=== PATIENT | female | born 1945 | race Caucasian/White ===

== ENCOUNTER → 2024-01-08 09:18 | Outpatient (REF) | payer MEDICARE, SELFPAY | LOC: HWWDC 09:18 | PROVIDERS: ATTENDING PHYSICIAN Family Medicine | DX: Z12.31 Encounter for screening mammogram for malignant neoplasm of breast (principal) | CPT/HCPCS: 77063; 77067 ==

== ENCOUNTER → 2024-03-31 09:30 | Outpatient (REF) | payer MEDICARE, SELFPAY ==
[2024-03-31 10:53] LABS: % Basophils 0.9 % (0-2); % Eosinophils 2.4 % (0-6); % Immature Granulocytes 0.5 % (0-0.5); % Lymphocytes 24.1 % (20.5-51.1); % Neutrophils 62.1 % (42.2-75.2); Absolute Basophils 0.1 10^3/uL (0-0.2); Absolute Eosinophils 0.1 10^3/uL (0-0.7); Absolute Lymphocytes 1.4 10^3/uL (1.2-3.4); Absolute Monocytes 0.6 10^3/uL (0.1-0.6); Absolute Neutrophils 3.6 10^3/uL (1.4-6.5); Hemoglobin 12.4 g/dL (12.0-16.0); Mean Corp Hgb Conc. 34.4 g/dL (33.0-37.0); Mean Corpuscular Hgb 31.3 pg (27.0-31.0); Mean Corpuscular Volume 90.9 fL (81.0-99.0); Nucleated Red Blood Cells % 0 %; Platelet Count 218 10^3/uL (130-400); Red Blood Cell Count 3.96 10^6/uL (4.20-5.40); Red Cell Dist. Width 12.5 % (11.5-14.5); White Blood Cell Count 5.8 10^3/uL (4.8-10.8)
[2024-03-31 11:49] LABS: ALT (SGPT) 39 U/L (0-35); AST (SGOT) 36 U/L (14-36); Albumin 4.5 g/dl (3.5-5.0); Alkaline Phosphatase 82 U/L (38-126); Blood Urea Nitrogen 26 mg/dl (7-17); Calcium 9.9 mg/dl (8.4-10.2); Carbon Dioxide 27 mmol/L (22-30); Chloride 103 mmol/L (98-107); Glucose 99 mg/dl (70-99); Potassium 4.1 mmol/L (3.5-5.1); Sodium 144 mmol/L (135-145); Total Bilirubin 1.3 mg/dl (0.2-1.3); Total Protein 6.9 g/dl (6.3-8.2); eGFR > 60.00
== END ==
LOC: RAD 09:30
PROVIDERS: ATTENDING PHYSICIAN Internal Medicine; PRIMARYCARE PHYSICIAN Family Medicine
DX: Z13.820 Encounter for screening for osteoporosis (principal); C50.912 Malignant neoplasm of unspecified site of left female breast; M81.0 Age-related osteoporosis without current pathological fracture
CPT/HCPCS: 36415; 77080; 80053; 85025

== ENCOUNTER 2024-05-04 08:50 | Outpatient (RCR) | payer MEDICARE, SELFPAY | END 2024-05-04 23:59 | disposition home or self-care (01) | LOC: RPT 08:50 | PROVIDERS: ATTENDING PHYSICIAN Family Medicine | DX: R15.9 Full incontinence of feces (principal); K62.89 Other specified diseases of anus and rectum; Z73.6 Limitation of activities due to disability; R47.01 Aphasia | CPT/HCPCS: 97110; 97112; 97162; 97530 ==

== ENCOUNTER 2024-06-03 10:47 | Outpatient (RCR) | payer MEDICARE, SELFPAY | END 2024-06-03 23:59 | disposition home or self-care (01) | LOC: RPT 10:47 | PROVIDERS: ATTENDING PHYSICIAN Family Medicine | DX: R15.9 Full incontinence of feces (principal); K62.89 Other specified diseases of anus and rectum; Z73.6 Limitation of activities due to disability; M62.81 Muscle weakness (generalized); R47.01 Aphasia | CPT/HCPCS: 97110; 97112 ==

== ENCOUNTER 2024-07-07 12:42 | Outpatient (RCR) | payer MEDICARE, SELFPAY | END 2024-07-07 23:59 | disposition home or self-care (01) | LOC: RPT 12:42 | PROVIDERS: ATTENDING PHYSICIAN Family Medicine | DX: R15.9 Full incontinence of feces (principal); K62.89 Other specified diseases of anus and rectum; Z73.6 Limitation of activities due to disability; M62.81 Muscle weakness (generalized); R47.01 Aphasia | CPT/HCPCS: 97110; 97112 ==

== ENCOUNTER 2024-07-29 10:51 | Outpatient (RCR) | payer MEDICARE, SELFPAY | END 2024-07-29 23:59 | disposition home or self-care (01) | LOC: RPT 10:51 | PROVIDERS: ATTENDING PHYSICIAN Family Medicine | DX: R15.9 Full incontinence of feces (principal); K62.89 Other specified diseases of anus and rectum; M62.89 Other specified disorders of muscle; Z73.6 Limitation of activities due to disability; M62.81 Muscle weakness (generalized); R47.01 Aphasia | CPT/HCPCS: 97110; 97112 ==

== ENCOUNTER 2024-09-29 13:52 | Outpatient (RCR) | payer MEDICARE, SELFPAY | END 2024-09-30 07:27 | disposition home or self-care (01) | LOC: RPT 13:52 | PROVIDERS: ATTENDING PHYSICIAN Family Medicine | DX: R15.9 Full incontinence of feces (principal); K62.89 Other specified diseases of anus and rectum; Z73.6 Limitation of activities due to disability; M62.81 Muscle weakness (generalized); R47.01 Aphasia; M62.89 Other specified disorders of muscle | CPT/HCPCS: 97110 ==

== ENCOUNTER → 2025-01-19 14:16 | Outpatient (REF) | payer MEDICARE, SELFPAY | LOC: WDC 14:16 | PROVIDERS: ATTENDING PHYSICIAN Internal Medicine; FAMILY PHYSICIAN Family Medicine | DX: Z12.31 Encounter for screening mammogram for malignant neoplasm of breast (principal) | CPT/HCPCS: 77063; 77067 ==